=== PATIENT | male | born 1960 | race Caucasian/White ===

== ENCOUNTER → 2017-11-21 | Outpatient (CLI) | payer OTHER | END | disposition home or self-care (01) | LOC: OIH 13:33 | PROVIDERS: ATTEND Internal Medicine Cardiovascular Disease | DX: Z13.6 Encounter for screening for cardiovascular disorders (principal) | CPT/HCPCS: 75571 ==

== ENCOUNTER 2020-03-22 18:35 | Emergency (ER) | payer SELFPAY ==
[2020-03-22] MEDS ORDERED: TETANUS/DIPHTHERIA TOXOID [ADULT] 0.5 ML VIAL IM ONE (19:11)
[2020-03-22 19:30] LABS: BASOPHILS % (AUTO) 0.5 % (0.0-5.0); EOSINOPHILS % (AUTO) 2.2 % (0.0-8.0); MEAN CORPUSCULAR HEMOGLOBIN 30.8 pg (27.0-33.0); MEAN CORPUSCULAR HGB CONC 34.4 g/dL (32.0-36.0); MEAN CORPUSCULAR VOLUME 89.3 fL (79-99); MONOCYTES % (AUTO) 5.5 % (3.0-13.0); NEUTROPHILS % (AUTO) 66.4 % (40.0-77.0); PLATELET COUNT (AUTO) 257 K/uL (130-400); RED BLOOD CELL COUNT(AUTO) 5.04 MIL/uL (4.50-6.20); RED CELL DISTRIBUTION WIDTH 11.9 % (11.0-15.5); WHITE BLOOD COUNT (AUTO) 7.3 K/uL (4.8-10.8)
[2020-03-22 19:32] LABS: CREATININE 1.5 mg/dL (0.5-1.5); POTASSIUM 4.2 mmol/L (3.5-5.1)
[2020-03-22] MEDS ORDERED: OCTYL 2-CYANOACRYLATE 1 EACH TP ONE (19:43)
[2020-03-22 19:47] LABS: PARTIAL THROMBOPLASTIN TIME 42.2 SEC (26.3-35.5)
[2020-03-22 19:51] LABS: INR 3.84 (0.85-1.15); PROTHROMBIN TIME 39.4 SEC (9.6-11.6)
== END 2020-03-22 20:21 | disposition home or self-care (01) ==
LOC: EDH 18:35
DX: S01.81XA Laceration without foreign body of other part of head, initial encounter (principal); R79.1 Abnormal coagulation profile; I82.4Y9 Acute embolism and thrombosis of unspecified deep veins of unspecified proximal lower extremity; W18.39XA Other fall on same level, initial encounter; Y93.01 Activity, walking, marching and hiking; Y92.89 Other specified places as the place of occurrence of the external cause; Y99.8 Other external cause status
CPT/HCPCS: 12052; 36415; 70450; 72127; 80048; 85025; 85610; 85730; 90471; 90714

== ENCOUNTER 2025-08-11 08:22 | Emergency (ER) | payer SELFPAY ==
[~2025-08-11] VITALS: Ht 188 cm; Wt 90.7 kg
[2025-08-11 08:45] LABS: IMMATURE GRANULOCYTE ABSOLUTE 0.02 K/uL (0-1); NUCLEATED RED BLOOD CELLS 0.0 % (0.0-0.19); PLATELET COUNT (AUTO) 268 K/uL (130-400); RED BLOOD CELL COUNT(AUTO) 5.21 MIL/uL (4.50-6.20); RED CELL DISTRIBUTION WIDTH 12.3 % (11.0-15.5); WHITE BLOOD COUNT (AUTO) 5.6 K/uL (4.8-10.8)
[2025-08-11] MEDS: MAG/ALUM/SIMETH 30 ML UDCUP PO STA (08:57)
[2025-08-11] MEDS: ASPIRIN 325MG TAB PO STA (08:57)
[2025-08-11 09:03] LABS: ASPARTATE AMINOTRANSFERASE 21.0 U/L (10-37); CREATININE 1.0 mg/dL (0.5-1.3); GLOMERULAR FILTR. RATE CALC 85.0 mL/min (>90); GLUCOSE,RANDOM 97.0 mg/dL (70-105); SODIUM SERUM 142.0 mmol/L (136-145); TOTAL PROTEIN, SERUM 7.7 g/dL (6.0-8.3); UREA NITROGEN, BLOOD 12.0 mg/dL (7-18)
[2025-08-11 09:13] LABS: INR 3.17 (0.85-1.15)
[2025-08-11 10:09] LABS: APPEARANCE,URINE CLEAR (CLEAR); GLUCOSE, URINE (UA) NEGATIVE (NEGATIVE); LEUKOCYTE ESTERASE ,URINE NEGATIVE Leu/uL (NEGATIVE); NITRATE,URINE NEGATIVE (NEGATIVE); OCCULT BLOOD,URINE NEGATIVE (NEGATIVE)
[2025-08-11 10:10] LABS: ADD UA MICROSCOPIC NO
--- NOTE | 2025-08-11 10:28 | HMCIMG ---
STUDY CR Chest, 1 view HISTORY Chest pain TECHNIQUE Single frontal chest radiograph. COMPARISON None. FINDINGS Lungs The lungs are clear without focal consolidation, pulmonary edema, or pneumothorax. No suspicious pulmonary nodule is identified. Pleural spaces No pleural effusion or pneumothorax is demonstrated. Cardiomediastinal silhouette Cardiac size and mediastinal contours are within normal limits. Bones and soft tissues No acute osseous abnormality is identified. Cervical spine fusion hardware is partially visualized in the lower neck region. Visualized soft tissues are unremarkable. IMPRESSION * No acute cardiopulmonary abnormality. * Partially visualized cervical spine fusion hardware. /[place]
--- NOTE | 2025-08-11 11:46 | ERN ---
ED Note History of Present Illness Stated Complaint: CHEST PAIN Chief Complaint: Chest Pain Time Seen by MD: 08:23 Dictation: 64-year-old male presenting to the emergency department with atypical chest pain over the past few days on and off and some mild acid reflux, nonexertional. Patient denies any previous heart history had negative stress test about 10-15 years ago. Patient has no hypertension or diabetes Allergies: Coded Allergies: No Known Drug Allergies (Unverified Allergy, Unknown, 08/11/25) Past Medical History Past Medical History: No Pertinent History Surgical History: Other Surgical History Other: HEAD SURGERY, ORAL SURGERY, NECK SURGERY Review of System Dictation Constitutional: Negative for fever,chills, and weight loss Eyes: Negative for injury, pain,redness, and discharge ENT: Negative for injury,pain or swelling Cardiovascular: Per HPI Respiratory: Negative for shortness of breath, cough, and wheezing, Abdomen/GI: Negative for abdominal pain, nausea, vomiting, diarrhea, and constipation Back: Negative for injury and pain : Negative for injury, bleeding and discharge MS/Extremity: Negative for injury and deformity Skin: Negative for rash, and discoloration Neuro: Negative for headache, weakness, numbness, tingling, and seizure Psych: Negative for suicide ideation, homicidal ideation, and hallucinations Initial Vital Sign VS Vital Signs Date Time Temp Pulse Resp B/P (MAP) Pulse Ox O2 Delivery O2 Flow Rate FiO2 08/11/25 08:23 97.9 76 18 155/88 100 Room Air 08/11/25 08:50 0 21 Physical Exam Dictation General: awake, alert, NAD Head/Face: Normocephalic, atraumatic Eyes: PERRL, EOMI, vision at baseline ENT: oral cavity clear, TMs clear, no signs of infection Neck: Trachea midline, supple, no nuchal rigidity Cardiovascular: RRR, normal S1/S2, No MRGs, no JVD Respiratory: CTAB, no respiratory distress, No rales or wheezes Abdomen: Soft, non-tender, non-distended, normal bowel sounds, no guarding or rebound. Skin: Warm, dry, normal turgor, no rash MS/Extremity: Pulses equal, no cyanosis, neurovascular intact, FROM Neuro: COAx4, GCS 15, strength 5/5, CN 2-12 intact, normal cerebellar exam, normal gait, Psych: Normal behavior, mood, and affect normal Results (Laboratory/Radiology) Laboratory/Radiology Laboratory Tests Test 08/11/25 08:31 08/11/25 09:38 08/11/25 10:58 White Blood Count 5.6 K/uL (4.8-10.8) Red Blood Count 5.21 MIL/uL (4.50-6.20) Hemoglobin 15.9 g/dL (14.0-18.0) Hematocrit 46.7 % (42-54) Mean Corpuscular Volume 89.6 fL (79-99) Mean Corpuscular Hemoglobin 30.5 pg (27.0-33.0) Mean Corpuscular Hemoglobin Concent 34.0 g/dL (32.0-36.0) Red Cell Distribution Width 12.3 % (11.0-15.5) Platelet Count 268 K/uL (130-400) Mean Platelet Volume 9.4 fL (7.5-10.5) Immature Granulocyte % (Auto) 0.4 % (0-1) Neutrophils (%) (Auto) 54.3 % (40.0-77.0) Lymphocytes (%) (Auto) 35.3 % (21.0-51.0) Monocytes (%) (Auto) 7.4 % (3.0-13.0) Eosinophils (%) (Auto) 2.1 % (0.0-8.0) Basophils (%) (Auto) 0.5 % (0.0-5.0) Neutrophils # (Auto) 3.1 K/uL (1.8-7.7) Lymphocytes # (Auto) 2.0 K/uL (1.0-4.8) Monocytes # (Auto) 0.4 K/uL (0.1-1.0) Eosinophils # (Auto) 0.12 K/uL (0.00-0.70) Basophils # (Auto) 0.03 K/uL (0.00-0.20) Absolute Immature Granulocyte (auto 0.02 K/uL (0-1) Nucleated Red Blood Cells 0.0 % (0.0-0.19) Prothrombin Time 30.0 SEC (9.6-11.6) H Prothromb Time International Ratio 3.17 (0.85-1.15) H Activated Partial Thromboplast Time 39.5 SEC (26.3-35.5) H Sodium Level 142 mmol/L (136-145) Potassium Level 4.6 mmol/L (3.5-5.1) Chloride Level 104 mmol/L (101-111) Carbon Dioxide Level 29 mmol/L (21-32) Blood Urea Nitrogen 12 mg/dL (7-18) Creatinine 1.0 mg/dL (0.5-1.3) Glomerular Filtration Rate Calc 85 mL/min (>90) Random Glucose 97 mg/dL (70-105) Total Calcium 9.0 mg/dL (8.5-10.1) Total Bilirubin 0.6 mg/dL (0.2-1.0) Direct Bilirubin 0.1 mg/dL (0.0-0.3) Aspartate Amino Transf (AST/SGOT) 21 U/L (10-37) Alanine Aminotransferase (ALT/SGPT) 32 U/L (12-78) Alkaline Phosphatase 76 U/L (50-136) Troponin I High Sensitivity 5 ng/L (4-75) < 4 ng/L (4-75) L B-Type Natriuretic Peptide 24 pg/mL (0-100) Total Protein 7.7 g/dL (6.0-8.3) Albumin 4.0 g/dL (3.5-5.0) Urine Color COLORLESS (YELLOW) Urine Appearance CLEAR (CLEAR) Urine pH 6.5 (5.0-8.0) Urine Specific [place] 1.008 (1.001-1.031) Urine Protein NEGATIVE mg/dL (NEGATIVE) Urine Glucose (UA) NEGATIVE mg/dL (NEGATIVE) Urine Ketones NEGATIVE mg/dL (NEGATIVE) Urine Occult Blood NEGATIVE (NEGATIVE) Urine Nitrate NEGATIVE (NEGATIVE) Urine Bilirubin NEGATIVE mg/dL (NEGATIVE) Urine Urobilinogen 0.2 mg/dL (0.2-1.0) Urine Leukocyte Esterase NEGATIVE Cain/uL Labs Reviewed?: Yes EKG: (+) NSR, (+) rhythm, (+) nonspecific ST T wave chg EKG Comment: Heart rate 77 normal sinus rhythm normal intervals no STEMI ED Course ED Course Orders Procedure Category Date Status Time B-Type Natriuretic LAB 08/11/25 Complete Peptide 08:23 12 Lead Ekg Tracing- EKG 08/11/25 Logged Technical 08:23 Basic Metabolic Panel LAB 08/11/25 Complete 08:23 Cbc With Differential LAB 08/11/25 Complete 08:23 Hepatic Function Panel LAB 08/11/25 Complete 08:23 Troponin I High LAB 08/11/25 Complete Sensitivity 08:23 Chest 1vw RAD 08/11/25 Resulted 08:23 Pt And Ptt LAB 08/11/25 Complete 08:50 Aspirin 325mg Tab PHA 08/11/25 Complete (Aspirin 325mg Tab) 08:50 Mag/Alum/Simeth 30ml PHA 08/11/25 Complete (Maalox Plus 30ml) 08:50 Urinalysis Profile LAB 08/11/25 Complete 09:38 Troponin I High LAB 08/11/25 Complete Sensitivity 10:29 12 Lead Ekg Tracing- EKG 08/11/25 Logged Technical 10:29 Current Medications Medications (Trade) Dose Ordered Sig/[place] Route PRN Reason Start Time Stop Time Status Last Admin Dose Admin Al Hydroxide/Mg Hydroxide (MAALox PLUS 30ML) 15 ml ONCE STAT PO 08/11/25 08:50 08/11/25 08:53 DC 08/11/25 08:57 Aspirin (Aspirin 325mg Tab) 325 mg ONCE STAT PO 08/11/25 08:50 08/11/25 08:53 DC 08/11/25 08:57 Vital Signs Date Time Temp Pulse Resp B/P (MAP) Pulse Ox O2 Delivery O2 Flow Rate FiO2 08/11/25 09:56 84 16 136/84 97 Room Air* 0 21 08/11/25 08:50 74 16 145/92 99 Room Air* 0 21 08/11/25 08:23 97.9 76 18 155/88 100 Room Air Medical Decision Making MDM MDM: Differential diagnosis: Rationale: Tests considered and ordered secondary to shared decision making include: Previous outside records reviewed: Old ER visits. Risk of complication and/or morbidity or mortality of patient management: None Medications-Per medication reconciliation Need for hospitalization: Patient does not meet criteria for hospitalization. Need for emergency major/minor surgery: No There are no social concerns with this patient. Prescription drug management Prescriptions will include symptomatic care Patient's prior external medical records from other ER visits were reviewed by me as indicated. Prior testing and results from previous visits were reviewed. Prior tests were taken into account with medical decision making and resource utilization, independent historian/historians were used to obtain complete medical history. I independently interpreted the test that were performed, results were reviewed by me and considered findings on radiology if ordered. Medical management and examination interpretation discussions were had by me with other qualified healthcare professionals as indicated for the patient's care. 64-year-old male with atypical chest pain negative workup here EKG and troponin x2 negative chest x-ray clear patient is currently chest pain-free, heart score is one, stable for outpatient follow up and workup. DX & DISP Disposition: Discharge Departure Impression: Primary Impression: Chest pain Condition: Stable Referrals: MIGUEL ÁNGEL RUBIO MD (PCP) JADE HOOK MD Time of Disposition: 11:46 DENG SAUCEDO MD Aug 11, 2025 11:46
[2025-08-11 12:13] VITALS: BP 132/79; PULSE 86; RESP 16; TEMP 98.2; O2SAT 97
--- NOTE | 2025-08-11 13:08 | EKG ---
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
--- NOTE | 2025-08-11 13:08 | EKG ---
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
== END 2025-08-11 12:15 | disposition home or self-care (01) ==
LOC: EDH 08:22
DX: R07.89 Other chest pain (principal); Z98.1 Arthrodesis status
CPT/HCPCS: 36415; 71045; 80048; 80076; 81003; 83880; 84484; 85025; 85610; 85730; 93005; 99285